=== PATIENT | female | born 1940 | race American Indian/Alaskan Native ===

== ENCOUNTER 2016-12-20 13:50 | Inpatient (IN) | payer MEDICARE, OTHER ==
--- NOTE | 2016-12-20 14:35 | Cat Scan Report ---
CT HEAD WITHOUT CONTRAST: HISTORY: Neurological deficit. Serial contiguous axial images were obtained through the cranium. Intravenous contrast material was not administered. The ventricles are normal in size and appearance. There is no mass effect or midline shift. No areas of abnormally increased or decreased attenuation are seen. No mass lesion is seen. The mastoid air cells and visualized portions of the sinuses are normal. IMPRESSION: Cranial CT scan within normal limits.
[2016-12-20 14:47] LABS: Basophils % (Auto) 0.9 % (0.0-1.8); Hematocrit 39.6 % (30.3-42.9); Hemoglobin 12.9 gm/dl (10.1-14.3); Mean Corpuscular HGB Conc 33 % (30-34); Mean Corpuscular Hemoglobin 28 pg (28-32); Mean Corpuscular Volume 88 fl (79-97); Platelet Count 207 K/mm3 (140-440); Red Blood Count 4.53 M/mm3 (3.65-5.03); Red Cell Distribution Width 14.9 % (13.2-15.2); White Blood Count 3.8 K/mm3 (4.5-11.0)
[2016-12-20 14:57] LABS: INR 0.96 (0.87-1.13); Partial Thromboplastin Time 30.4 Sec. (24.2-36.6)
[2016-12-20 15:09] LABS: Anion Gap 16 mmol/L; BUN/Creatinine Ratio 13.75; Blood Urea Nitrogen 11 mg/dL (7-17); Carbon Dioxide 27 mmol/L (22-30); Chloride 102.1 mmol/L (98-107); Glucose 82 mg/dL (65-100); Potassium 3.3 mmol/L (3.6-5.0); Sodium 142 mmol/L (137-145)
[2016-12-20] MEDS ORDERED: K-DUR PO ONE (15:25)
--- NOTE | 2016-12-20 15:46 | Emergency Department Report ---
ED Neuro Deficit HPI - General Chief Complaint: Neuro Symptoms/Deficit Stated Complaint: POSS STROKE Time Seen by Provider: 12/20/16 14:47 Source: patient Mode of arrival: Ambulatory Limitations: No Limitations - History of Present Illness Initial Comments: 76-year-old female with a past medical history diabetes, hypertension, GERD, and sickle cell trait presents to the hospital complains of dizziness and unsteady since yesterday. Patient initially presented to her anesthesiologist physician's office and was seen by Dr. Dr. Mann. During this visit patient is noted to have unsteady gait especially when trying to walk single fell 1 foot in front of the other. Patient was then sent to Dr. Sage neurologist office for further evaluation. Dr. Sage sent the patient to the ED to be worked up for stroke. I discussed case with Dr. Sage prior to patient's arrival to the ED. He requires admission and stroke evaluation. Patient denies any pain. She states that her dizziness feels more like an off-balance sensation and denies any spinning. Symptoms were worse yesterday and patient had to catch herself because she was falling to one side or the other when trying to ambulate. Now she is able to ambulate better but still has the off-balance feeling. She has difficulty when trying to walk 1 foot in front of the other as well. No reports of headache, nausea, vomiting, focal weakness or numbness. - Related Data Home Medications: Home Medications Medication Instructions Recorded Confirmed Last Taken Ca/D3/Mag#11/Zinc/Supervisor [place] 1 tab PO DAILY 08/23/13 08/23/13 08/22/13 [Caltrate 600+D Plus Tablet] 1 tab Calcium Carbonate/Vitamin D3 1 tab PO DAILY 08/23/13 08/23/13 08/22/13 08:00 [Centrum Pro Nutrients Tablet] 1 tablet Cyanocobalamin [Vitamin B-12] 1,000 mcg PO DAILY 08/23/13 08/23/13 08/22/13 08: 00 1000mcg Dexlansoprazole [Dexilant] 60 mg PO DAILY 08/23/13 08/23/13 08/22/13 08:00 Lactobacillus Acidophilus 1 each PO DAILY 08/23/13 08/23/13 08/22/13 [Probiotic] 1 cap [place]-3 Fatty Acids/Fish Oil [Fish 1 cap PO DAILY 08/23/13 08/23/13 08/22/13 08: 00 Oil] Quinapril/Hydrochlorothiazide 10 - 12.5 mg PO DAILY 08/23/13 08/23/13 08/23/13 [Quinapril-Hctz 10-12.5 mg Tab] 10-12.5mg Simvastatin [Zocor] 40 mg PO QHS 08/23/13 08/23/13 08/22/13 22:00 40mg glipiZIDE [glipiZIDE XL] 5 mg PO DAILY 08/23/13 08/23/13 08/22/13 07:30 5 mg Previous Rx's Medication Instructions Recorded Last Taken Type metFORMIN [Glucophage] 850 mg PO TID #30 08/23/13 08/22/13 07:30 Rx 850mg Allergies/Adverse Reactions: Allergies Allergy/AdvReac Type Severity Reaction Status Date / Time No Known Allergies Allergy Verified 08/23/13 07:05 ED Review of Systems ROS: Stated complaint: POSS STROKE Other details as noted in HPI Comment: All other systems reviewed and negative Other: Constitutional: No fevers chills Eyes: No eye pain visual changes ENT: No ear pain or throat pain Neck: Denies pain Respiratory: Denies cough wheezing shortness of breath Cardiovascular: Denies chest pain, palpitations, syncope GI: Denies abdominal pain, nausea, vomiting, diarrhea : Denies dysuria Musculoskeletal: Denies back pain Skin: Denies rash, lesions, erythema Neurologic: Denies headache, numbness, weakness Psychiatric: Denies suicidal ideation, hallucinations ED Past Medical Hx - Past Medical History Previous Medical History?: Yes Hx Hypertension: Yes Hx Diabetes: Yes Hx GERD: Yes Hx Sickle Cell Disease: Yes (sickle cell trait) Hx Arthritis: Yes - Surgical History Past Surgical History?: Yes Hx Cholecystectomy: Yes Hx Breast Surgery: Yes - Social History Smoking Status: Former Smoker Substance Use Type: Alcohol, Prescribed - Medications Home Medications: Home Medications Medication Instructions Recorded Confirmed Last Taken Type Ca/D3/Mag#11/Zinc/Supervisor [place] 1 tab PO DAILY 08/23/13 08/23/13 08/22/13 History [Caltrate 600+D Plus Tablet] 1 tab Calcium Carbonate/Vitamin D3 1 tab PO DAILY 08/23/13 08/23/13 08/22/13 08:00 History [Centrum Pro Nutrients Tablet] 1 tablet Cyanocobalamin [Vitamin B-12] 1,000 mcg PO DAILY 08/23/13 08/23/13 08/22/13 08: 00 History 1000mcg Dexlansoprazole [Dexilant] 60 mg PO DAILY 08/23/13 08/23/13 08/22/13 08:00 History Lactobacillus Acidophilus 1 each PO DAILY 08/23/13 08/23/13 08/22/13 History [Probiotic] 1 cap [place]-3 Fatty Acids/Fish Oil [Fish 1 cap PO DAILY 08/23/13 08/23/13 08/22/13 08: 00 History Oil] Quinapril/Hydrochlorothiazide 10 - 12.5 mg PO DAILY 08/23/13 08/23/13 08/23/13 History [Quinapril-Hctz 10-12.5 mg Tab] 10-12.5mg Simvastatin [Zocor] 40 mg PO QHS 08/23/13 08/23/13 08/22/13 22:00 History 40mg glipiZIDE [glipiZIDE XL] 5 mg PO DAILY 08/23/13 08/23/13 08/22/13 07:30 History 5 mg metFORMIN [Glucophage] 850 mg PO TID #30 08/23/13 08/23/13 08/22/13 07:30 Rx 850mg ED Neuro Physical Exam - General Limitations: No Limitations Suspected Stroke: Yes - NIHSS Assessment Interval: Baseline 1a. Level of Consciousness: alert 1b. LOC Questions: answers correctly 1c. LOC Commands: performs tasks correctly 2. Best Gaze: normal 3. Visual: no visual loss 4. Facial Palsy: normal symmetrical movement 5b. Motor Arm Right: no drift 5a. Motor Arm Left: no drift 6a. Motor Leg Left: no drift 6b. Motor Leg Right: no drift 7. Limb Ataxia: absent 8. Sensory: normal 9. Best Language: no aphasia 10. Dysarthria: normal 11. Extinction/Inattention: no abnormality Total Score: 0 Stroke Severity: No Stroke Symptoms - Other Other exam information: General: No limitations, patient is alert in no acute distress Head exam: Atraumatic, normocephalic Eyes exam: Normal appearance, pupils equal reactive to light, extraocular movements intact ENT: Moist mucous membrane, normal oropharynx Neck exam: Normal inspection, full range of motion, no meningismus nontender Respiratory exam: Clear to auscultation bilateral, no wheezes, rales, crackles Cardiovascular: Normal rate and rhythm, normal heart sounds Abdomen: Soft, nondistended, and nontender, with normal bowel sounds, no rebound, or guarding Extremity: Full range of motion normal inspection no deformity Back: Normal Inspection, full range of motion, no tenderness Neurologic: Alert, oriented x3, cranial nerves intact, no motor or sensory deficit Psychiatric: normal affect, normal mood Skin: Warm, dry, intact ED Course Vital Signs 12/20/16 13:58 Temperature 98.6 F Pulse Rate 62 Respiratory 18 Rate Blood Pressure 154/100 O2 Sat by Pulse 100 Oximetry - Reevaluation(s) Reevaluation #1: 12/20/16 15:47 Potassium orally in the ED for hypokalemia - Lab Data Result diagrams: 12/20/16 14:32 12/20/16 14:32 Lab Results 12/20/16 12/20/16 12/20/16 Range/Units 14:32 14:32 14:32 WBC 3.8 L (4.5-11.0) K/mm3 RBC 4.53 (3.65-5.03) M/mm3 Hgb 12.9 (10.1-14.3) gm/dl Hct 39.6 (30.3-42.9) % MCV 88 (79-97) fl MCH 28 (28-32) pg MCHC 33 (30-34) % RDW 14.9 (13.2-15.2) % Plt Count 207 (140-440) K/mm3 Lymph % (Auto) 41.6 H (13.4-35.0) % [place] % (Auto) 6.8 (0.0-7.3) % Eos % (Auto) 3.0 (0.0-4.3) % Baso % (Auto) 0.9 (0.0-1.8) % Lymph # 1.6 (1.2-5.4) K/mm3 [place] # 0.3 (0.0-0.8) K/mm3 Eos # 0.1 (0.0-0.4) K/mm3 Baso # 0.0 (0.0-0.1) K/mm3 Seg Neutrophils % 47.7 (40.0-70.0) % Seg Neutrophils # 1.8 (1.8-7.7) K/mm3 PT 12.7 (12.2-14.9) Sec. INR 0.96 (0.87-1.13) APTT 30.4 (24.2-36.6) Sec. Thrombin Time (15.1-19.6) Sec. Sodium 142 (137-145) mmol/L Potassium 3.3 L (3.6-5.0) mmol/L Chloride 102.1 (98-107) mmol/L Carbon Dioxide 27 (22-30) mmol/L Anion Gap 16 mmol/L BUN 11 (7-17) mg/dL Creatinine 0.8 (0.7-1.2) mg/dL Estimated GFR > 60 ml/min BUN/Creatinine Ratio 13.75 % Glucose 82 (65-100) mg/dL Calcium 10.0 (8.4-10.2) mg/dL Troponin T < 0.010 (0.00-0.029) ng/mL 12/20/16 Range/Units 14:32 WBC (4.5-11.0) K/mm3 RBC (3.65-5.03) M/mm3 Hgb (10.1-14.3) gm/dl Hct (30.3-42.9) % MCV (79-97) fl MCH (28-32) pg MCHC (30-34) % RDW (13.2-15.2) % Plt Count (140-440) K/mm3 Lymph % (Auto) (13.4-35.0) % [place] % (Auto) (0.0-7.3) % Eos % (Auto) (0.0-4.3) % Baso % (Auto) (0.0-1.8) % Lymph # (1.2-5.4) K/mm3 [place] # (0.0-0.8) K/mm3 Eos # (0.0-0.4) K/mm3 Baso # (0.0-0.1) K/mm3 Seg Neutrophils % (40.0-70.0) % Seg Neutrophils # (1.8-7.7) K/mm3 PT (12.2-14.9) Sec. INR (0.87-1.13) APTT (24.2-36.6) Sec. Thrombin Time 17.6 (15.1-19.6) Sec. Sodium (137-145) mmol/L Potassium (3.6-5.0) mmol/L Chloride (98-107) mmol/L Carbon Dioxide (22-30) mmol/L Anion Gap mmol/L BUN (7-17) mg/dL Creatinine (0.7-1.2) mg/dL Estimated GFR ml/min BUN/Creatinine Ratio % Glucose (65-100) mg/dL Calcium (8.4-10.2) mg/dL Troponin T (0.00-0.029) ng/mL - EKG Data -: EKG Interpreted by Me (sinus bradycardia rate [address] elevation or T-wave inversion) When compared to previous EKG there are: no significant change - Radiology Data Radiology results: report reviewed (CT head: No acute findings) - Medical Decision Making Plan admit patient to hospital for further workup and evaluation of unsteady gait and dizziness. Neurologist suspicious for posterior circulation stroke. Initial CT head unremarkable. - Differential Diagnosis vertigo, CVA, Critical Care Time: No Critical care attestation.: If time is entered above; I have spent that time in minutes in the direct care of this critically ill patient, excluding procedure time. ED Disposition Clinical Impression: Dizziness, Unsteady gait, HTN (hypertension), Diabetes Disposition: OP ADMITTED IP TO THIS HOSP Is pt being admited?: Yes Condition: Stable Instructions: Hypertension (ED), Diabetes Mellitus Type 2 in Adults (ED) Time of Disposition: 15:49 (Dr. Moreno/hosp)
--- NOTE | 2016-12-20 16:17 | History and Physical Report ---
History of Present Illness Chief complaint: Weakness, cant walk right History of present illness: 76 YO Female with DM, OA, HTN, GERD, Metabolic Syndrome, SC Trait presents to ED for Evalaution. Pt states that she has been experiencing dizziness, and inability to walk straight for the past 24 hours. Pt states that symptoms began yesterday and have improved only slightly, but have not worsened. Patient initially evaluated in her cardiology physician's office and was noted to have abnormal gait, and weakness. Pt states that she has a ringing in her ear and that sometimes she feeling like the room is spinning. Patient was then sent to neurologist office for further evaluation who recommended that patient present to ED for evaluation. Pt denies fever, chills, CP, Palpitations, NVD, difficulty breathing, Syncope, seizure, headache, nausea, vomiting, or recent ill contacts, prolonged travel/immobility, individual/family history of DVT/PE. Past History Past Medical History: arthritis, diabetes, GERD, hypertension Past Surgical History: cholecystectomy, Other (breast surgery) Social history: , lives with family. denies: smoking, alcohol abuse, prescription drug abuse Family history: diabetes, hypertension Medications and Allergies Allergies Allergy/AdvReac Type Severity Reaction Status Date / Time No Known Allergies Allergy Verified 08/23/13 07:05 Home Medications Medication Instructions Recorded Confirmed Last Taken Type Cyanocobalamin (Vitamin B-12) 1,000 mcg PO DAILY 12/20/16 12/20/16 12/19/16 History [B-12] Dexlansoprazole [Dexilant] 60 mg PO QDAY 12/20/16 12/20/16 12/19/16 History Multivit-Min/FA/Lycopen/Lutein 1 each PO BID 12/20/16 12/20/16 12/19/16 History [Centrum Silver Tablet] Multivits Min/Iron/FA/Herb#186 1 each PO BID 12/20/16 12/20/16 12/19/16 History [Hair, Skin and Nails Caplet] Simvastatin [Zocor TAB] 40 mg PO QHS 12/20/16 12/20/16 12/19/16 History Valsartan/Hydrochlorothiazide 1 each PO DAILY 12/20/16 12/20/16 12/19/16 History [Valsartan-Hctz 160-12.5 mg Tab] glipiZIDE XL [Glucotrol Xl] 10 mg PO BID 12/20/16 12/20/16 12/19/16 History Review of Systems All systems: negative Neurological: weakness, balance difficulties Exam - Constitutional Vitals: Temp Pulse Resp BP Pulse Ox 98.6 F 63 18 150/76 99 12/20/16 13:58 12/20/16 16:02 12/20/16 16:02 12/20/16 16:02 12/20/16 16:02 General appearance: Present: obese - EENT Eyes: Present: PERRL ENT: hearing intact, clear oral mucosa - Neck Neck: Present: supple, normal ROM - Respiratory Respiratory effort: normal Respiratory: bilateral: CTA - Cardiovascular Heart Sounds: Present: S1 & S2. Absent: rub, click - Extremities Extremities: pulses symmetrical, No edema Peripheral Pulses: within normal limits - Abdominal General gastrointestinal: Present: soft, non-tender, non-distended, normal bowel sounds Female genitourinary: Present: normal - Integumentary Integumentary: Present: clear, warm, dry - Musculoskeletal Musculoskeletal: gait normal, strength equal bilaterally - Psychiatric Psychiatric: appropriate mood/affect, intact judgment & insight - Neurologic Neurologic: CNII-XII intact, moves all extremities Results - Labs CBC & Chem 7: 12/20/16 14:32 12/20/16 14:32 Labs: Abnormal lab results 12/20/16 12/20/16 Range/Units 14:32 14:32 WBC 3.8 L (4.5-11.0) K/mm3 Lymph % (Auto) 41.6 H (13.4-35.0) % Potassium 3.3 L (3.6-5.0) mmol/L Assessment and Plan - Patient Problems (1) CVA (cerebral vascular accident) Current Visit: Yes Status: Suspected Qualifiers: CVA mechanism: C Precerebral and cerebral artery: P Laterality of affected vessel: L Plan to address problem: Stroke protocol: MRI, MRA, Carotid doppler, Echo, supportive care, lipid panel, antiplatelet therapy (2) Accelerated hypertension Current Visit: Yes Status: Acute Plan to address problem: Monitor BP q shift, resume home medication. Telemetry monitoring, (3) Encephalopathy acute Current Visit: Yes Status: Acute Plan to address problem: Monitor bp q shift, continue current care, fall precautions (4) Diabetes Current Visit: Yes Status: Acute Qualifiers: Diabetes mellitus type: D Diabetes mellitus complication status: D Diabetes mellitus complication detail: D Diabetic retinopathy severity: D Proliferative retinopathy type: P Diabetes mellitus macular edema: D Diabetes mellitus rodent exterminator insulin use: D Laterality: L Chronic kidney disease stage: C Plan to address problem: ADA diet, insulin, accu check (5) Vertigo Current Visit: Yes Status: Suspected Plan to address problem: Suspected vertigo, will rull out acute CVA/TIA, supportive care, will start meclizine/vestibular rehab bending results of stroke workup. (6) DVT prophylaxis Current Visit: Yes Status: Acute
[2016-12-20] MEDS ORDERED: MILK OF MAGNESIA PO PRN ×2 (16:18→16:20)
[2016-12-20] MEDS ORDERED: DULCOLAX PR PRN ×2 (16:18→16:20)
[2016-12-20] MEDS ORDERED: ZOFRAN IV PRN ×2 (16:18→16:20)
[2016-12-20] MEDS ORDERED: TYLENOL PO PRN ×2 (16:18→16:20)
[2016-12-20] MEDS ORDERED: REGLAN PO PRN (16:20)
[2016-12-20] MEDS ORDERED: PHENERGAN PR PRN (16:20)
[2016-12-20] MEDS ORDERED: SODIUM CHLORIDE FLUSH SYRINGE 10 ML IV PRN (16:20)
--- NOTE | 2016-12-20 16:37 | Admit Criteria Form ---
Admission Criteria Documentation: NEUROLOGY GRG Clinical Indications for Admission to Inpatient Care (Place ' X' for any and all applicable criteria): Hospital admission is needed for appropriate care of the patient because of 1 or more of the following: [ ]I. Encephalitis [ ]II. Severe COMPUTER AIDED DESIGN TECHNICIAN infections indicated by 1 or more of the following(1)(2)(3) : [ ]a) Intracranial abscess [ ]b) Spinal abscess or myelitis [ ]c) Tuberculous or other nonbacterial, nonviral COMPUTER AIDED DESIGN TECHNICIAN infection(8) [ ]III. Vasculitis and 1 or more of the following(14)(15): []a) Altered mental status that is severe or persistent or other acute neurologic change []b) Psychosis []c) Seizure [ ]IV. Status epilepticus or repetitive seizures not controlled with emergent treatment [A] (7)(8) [ ]V. Altered mental status that is severe or persistent [ ]. Transient alteration in consciousness with high-risk etiology; examples include (12)(13): [ ]a) Cardiovascular source [ ]b) Cataplexy [ ]VII. Cerebral aneurysm requiring ANY ONE of the following(14): [ ]a) IV antihypertensives or vasoactive agents [ ]b) Sedation and analgesia for suspected leak [ ]c) Need for external ventricular drainage and cerebral perfusion pressure monitoring [ ]d) Emergent evaluation to determine need for surgical clipping or endovascular coiling by interventional radiology. If surgery is required ( Also use Craniotomy, Supratentorial, for Surgery of Bleeding Intracranial Aneurysm (for bleeding aneurysm) or Craniotomy, Supratentorial (for nonbleeding aneurysm) as appropriate. [ ]VIII. New-onset severe neurologic symptom requiring inpatient care indicated by ANY ONE of the following: [ ]a) Aphasia(15) [ ]b) Weakness (grade 3 or less) [ ]c) Paralysis (eg, hemiplegia) [ ]d) Spasticity(16) [ ]e) Dystonia [ ]e) Ataxia(17) [ ]f) Amnesia(18) [ ]g) Involuntary movements(19) [ ]h) Vertigo [ ] Visual loss [ ]i) Other severe neurologic finding (eg, papilledema, mass effect on imaging, myoclonus not treatable at alternative level of care (eg, observation care) [ ]IX. Guillain-Greenwood syndrome(20) [ ]X. Myasthenia gravis crisis or inpatient monitoring need as indicated by 1 or more of the following(21): [ ]a) Intensive treatment (eg, course of plasmapheresis) with inadequate outpatient situation to monitor patients status [ ]b) Inadequate airway protection [ ]c) Respiratory insufficiency requiring intubation or inpatient. monitoring [ ]d) Progressive dysphagia with failure to thrive [ ]XI. Multiple sclerosis or other acute demyelinating disease requiring inpatient care as indicated by 1 or more of the following (22)(23): [ ]a) Acute severe deterioration requiring inpatient treatment (eg, IV steroids, plasmapheresis, close observation) [ ]b) Acute complication requiring inpatient care (eg, sepsis, severe decubitus, aspiration) [ ]XII.Parkinson disease requiring inpatient care (Also use Optimal Recovery Care Criteria or General Recovery Criteria as appropriate) indicated by 1 or more of the following(25): [ ]a) Infection (eg, aspiration pneumonia) not treatable at alternative level of care [ ]b Dehydration that is severe or persistent [ ]c) Life-threatening agitation or psychotic behavior not treatable on emergency, observation care, or alternative level (eg, residential) basis [ ]d) Severe medication withdrawal effects (eg, freezing, neuroleptic malignant syndrome) not responsive to emergency and observation care treatment ( as appropriate) [ ]e) Other severe manifestation not treatable at alternative level of care [ ]XII. Amyotrophic lateral sclerosis with inpatient care needs as indicated by ANY ONE of the following(26): [ ]a) Acute complications (eg, aspiration pneumonia, sepsis ) requiring inpatient care ( see other optimal Recovery Guideline as appropriate) [ ]b) Dehydration that is severe persistent AND artificial support desired [ ]c) Inadequate airway protection AND artificial support desired [ ]d) Severe ventilatory insufficiency AND artificial support desired [ ]XIII. Myasthenia gravis crisis or inpatient monitoring need as indicated by 1 or more of the following(21): [] a) Inadequate airway protection []b) Respiratory insufficiency requiring intubation or inpatient monitoring []c) Progressive dysphagia with failure to thrive []d) Intensive treatment (e.g., course of plasmapheresis) with inadequate outpatient situation to monitor patients status [ ]XIV. Multiple sclerosis or other acute demyelinating disease requiring inpatient care indicated by 1 or more of the following[C](36)(43)(44)(45)(46): []a) Acute severe deterioration requiring inpatient treatment (eg, IV steroids, plasmapheresis, close observation) []b) Acute complication requiring inpatient care (eg, sepsis, severe decubitus, aspiration) [ ]XV. Intracranial hypertension (e.g., pseudotumor cerebri) requiring inpatient care (e.g., acute visual loss, inadequate oral intake) (47)(48)(49) [ ]XVI. Parkinson disease requiring inpatient care (Also use Optimal Recovery Care Criteria or General Recovery Criteria as appropriate) indicated by 1 or more of the following(25): [] a) Infection (e.g., aspiration pneumonia) not treatable at alternative level of care []b) Volume depletion not responsive to emergency and observation care treatment (as appropriate) []c) Life-threatening agitation or psychotic behavior not treatable on emergency, observation care, or alternative level (e.g., residential) basis []d) Severe medication withdrawal effects (e.g., freezing, neuroleptic malignant syndrome) not responsive to emergency and observation care treatment (as appropriate) []e) Other severe manifestation not treatable at alternative level of care [ ]XVII. Amyotrophic lateral sclerosis with inpatient care needs as indicated by1 or more of the following(42): []a) Acute complications (eg, aspiration pneumonia, sepsis) requiring inpatient care (see other Optimal Recovery Guideline or General Recovery Guideline as appropriate) []b) Dehydration that is severe or persistent AND artificial support desired []c) Inadequate airway protection AND artificial support desired []d) Severe ventilatory insufficiency AND artificial support desired [ ]XVIII. Severe myopathy, neuropathy, or other neuromuscular disease indicated by 1 or more of the following(42)(52)(53)(54): []a ) New-onset severe diffuse weakness (eg, strength 3/5 or less) []b) Severe dysphagia []c) Dyspnea at rest or with minimal exertion (new) []d) Inadequate airway protection []e) Inadequate ventilation indicated by 1 or more of the following : i) Partial pressure of carbon dioxide greater than 44 mm Hg ( 5.9 kPa) (new) ii) Reduced peak expiratory flow rate (new) iii) Vital capacity less than 50% of predicted (less than 15 mL/kg) iv) Peak inspiratory force less negative than -30 cm H2O (- 2942 Pa) [ ]XVII.Complications of congenital or degenerative disease (eg, infection, seizures, dehydration, injury) not responsive to emergency and observation care treatment (as appropriate ) [C](16)(29)(30) [ ]XVIII.Suspected or confirmed nerve or muscle toxic injury, including ANY ONE of the following: [ ]a) Rhabdomyolysis(31) i) Acute renal failure ii) Dehydration that is severe or persistent iii) Altered mental status that is severe or persistent iv) Electrolyte abnormality that remains after emergency or observation level care ( as appropriate) [ ]b) Botulism(32) [ ]c) Other severe toxin-induced sign or symptom [ ]XIX. Neurologic trauma requiring inpatient treatment (medical) indicated by ANY ONE of the following(33)(34): [ ]a) Vital signs or neurologic signs more frequently than every 4 hours [ ]b) Hyperosmolar therapy [ ]c) Respiratory monitoring [ ]d) Intracranial pressure monitoring and treatment [ ]e) Stabilization and immobilization device placement (eg, braces, body jacket) [ ]f) Intubation & mechanical ventilation for airway protection or therapeutic hyperventilation [ ]g) Other treatment or monitoring needed that requires inpatient level of care [ ]XX.Complications of neurologic devices (eg, ventricular shunt, neurostimulator) requiring 1 or more of the following(35)(36): [ ]a) IV antibiotics with monitoring while awaiting culture results [ ]b) Monitoring for hydrocephalus [X ]XXI. Neurology condition symptom, or finding for which emergency and observation care have failed or are not considered appropriate. See General Criteria: Observation Care ISC, General Admission Criteria GRG, or Pediatric General Admission Criteria GRG guideline as appropriate. The original [facility] content created by [facility] has been revised. The portions of the content which have been revised are identified through the use of italic text or in bold, and [facility] has neither reviewed nor approved the modified material. All other unmodified content is copyright [facility] Please see references footnoted in the original [facility] edition 2016 Admission Criteria Met: Yes
[2016-12-20] MEDS ORDERED: D50W (25GM) IV PRN (17:03)
[2016-12-20] MEDS: NOVOLOG SUB-Q SCH ×2 (18:13→21:46)
[2016-12-20] MEDS ORDERED: ZOCOR PO SCH ×2 (22:00)
[2016-12-20] MEDS ORDERED: [UNRECOGNIZED DRUG - OTHER] PO SCH (22:00)
[2016-12-20] MEDS ORDERED: HERB PO SCH (22:00)
[2016-12-20] MEDS ORDERED: IRON PO SCH (22:00)
[2016-12-20] MEDS ORDERED: MULTIVITS MIN PO SCH (22:00)
[2016-12-20] MEDS ORDERED: NON-FORMULARY (Multivit-Min/Fa/Lycopen/Lutein [Centrum Silver Tablet] 1 EACH) PO SCH (22:00)
[2016-12-21] MEDS: NOVOLOG SUB-Q SCH (08:28)
[2016-12-21] MEDS ORDERED: NON-FORMULARY (Valsartan/Hydrochlorothiazide [Valsartan-Hctz 160-12.5 Mg Tab] 1 EACH) PO SCH (10:00)
[2016-12-21] MEDS ORDERED: VITAMIN B-12 PO SCH (10:00)
[2016-12-21] MEDS ORDERED: THERAGRAN Tab PO SCH (10:00)
[2016-12-21] MEDS ORDERED: HCTZ PO SCH (10:00)
[2016-12-21] MEDS ORDERED: NON-FORMULARY (Dexlansoprazole [Dexilant] 60 MG) PO SCH (10:00)
[2016-12-21] MEDS ORDERED: ECOTRIN PO SCH (10:00)
[2016-12-21] MEDS ORDERED: PROTONIX PO SCH (10:00)
[2016-12-21] MEDS ORDERED: DIOVAN PO SCH (10:00)
--- NOTE | 2016-12-21 12:09 | Progress Note ---
Assessment and Plan Assessment and plan: Patient 76-year-old woman with a history of hypertension, Diabetes mellitus type 2, GERD who presents with dizziness and unsteady gait since yesterday. Patient had ringing in her ear and allergies sinus drainage, vertigo 1 week. She went to see her practice management consultant Dr. Jillian Burns referred her to the neurologist Dr. Sage. Dr. Zheng sent to the ED to be worked up for stroke. -Ataxia with without cerebellar dysmetria or nystagmus, most likely related to inner Ear dysfunction/peripheral Vertigo if MRI is negative, carotid Dopplers negative -Hypokalemia: Replace -Accelerated hypertension History Interval history: Patient seen and examined. Follow up on vertigo symptoms including dizziness. She does have ringing in her right ear. She does have abnormal balance. Overnight uneventful. No cp, sob, n/v or severe headaches. Imaging, old records , testing, labs, nursing notes reviewed. Plan discussed with patient. Hospitalist Physical - Physical exam Narrative exam: GEN: WDWN, NAD, AWAKE, ALERT, ORIENTATED 3 HEENT: NCAT, PERRL, EOMI, OP CLEAR NECK: SUPPLE, NO THYROMEGALY, NO JVD, NO LAD CVS: RRR, NORMAL S1S2 LUNGS/CHEST: CTA B, NORMAL CHEST EXPANSION B, GOOD AIR ENTRY B ABD: SOFT NTND, GBS, NO REBOUND OR GUARDING EXT/SKIN: NO SIGNIFICANT EDEMA OR RASH MSK: FROM X 4 EXTREMITIES NEURO: CN 2-12 GROSSLY INTACT, NO new FOCAL DEFICITS PSY: CALM - Constitutional Vitals: Temp Pulse Resp BP Pulse Ox 97.9 F 53 L 20 141/61 97 12/21/16 04:45 12/21/16 10:28 12/21/16 04:45 12/21/16 04:45 12/21/16 09:07 General appearance: Present: obese Results - Labs CBC & Chem 7: 12/20/16 14:32 12/20/16 14:32 Labs: Laboratory Last Values WBC 3.8 K/mm3 (4.5-11.0) L 12/20/16 14:32 RBC 4.53 M/mm3 (3.65-5.03) 12/20/16 14:32 Hgb 12.9 gm/dl (10.1-14.3) 12/20/16 14:32 Hct 39.6 % (30.3-42.9) 12/20/16 14:32 MCV 88 fl (79-97) 12/20/16 14:32 MCH 28 pg (28-32) 12/20/16 14:32 MCHC 33 % (30-34) 12/20/16 14:32 RDW 14.9 % (13.2-15.2) 12/20/16 14:32 Plt Count 207 K/mm3 (140-440) 12/20/16 14:32 Lymph % (Auto) 41.6 % (13.4-35.0) H 12/20/16 14:32 Ritchie % (Auto) 6.8 % (0.0-7.3) 12/20/16 14:32 Eos % (Auto) 3.0 % (0.0-4.3) 12/20/16 14:32 Baso % (Auto) 0.9 % (0.0-1.8) 12/20/16 14:32 Lymph # 1.6 K/mm3 (1.2-5.4) 12/20/16 14:32 Ritchie # 0.3 K/mm3 (0.0-0.8) 12/20/16 14:32 Eos # 0.1 K/mm3 (0.0-0.4) 12/20/16 14:32 Baso # 0.0 K/mm3 (0.0-0.1) 12/20/16 14:32 Seg Neutrophils % 47.7 % (40.0-70.0) 12/20/16 14:32 Seg Neutrophils # 1.8 K/mm3 (1.8-7.7) 12/20/16 14:32 PT 12.7 Sec. (12.2-14.9) 12/20/16 14:32 INR 0.96 (0.87-1.13) 12/20/16 14:32 APTT 30.4 Sec. (24.2-36.6) 12/20/16 14:32 Thrombin Time 17.6 Sec. (15.1-19.6) 12/20/16 14:32 Sodium 142 mmol/L (137-145) 12/20/16 14:32 Potassium 3.3 mmol/L (3.6-5.0) L 12/20/16 14:32 Chloride 102.1 mmol/L (98-107) 12/20/16 14:32 Carbon Dioxide 27 mmol/L (22-30) 12/20/16 14:32 Anion Gap 16 mmol/L 12/20/16 14:32 BUN 11 mg/dL (7-17) 12/20/16 14:32 Creatinine 0.8 mg/dL (0.7-1.2) 12/20/16 14:32 Estimated GFR > 60 ml/min 12/20/16 14:32 BUN/Creatinine Ratio 13.75 % 12/20/16 14:32 Glucose 82 mg/dL (65-100) 12/20/16 14:32 POC Glucose 101 (70-105) 12/20/16 21:34 Hemoglobin A1c 6.3 % (4-6) H 12/21/16 05:17 Calcium 10.0 mg/dL (8.4-10.2) 12/20/16 14:32 Troponin T < 0.010 ng/mL (0.00-0.029) 12/20/16 14:32
--- NOTE | 2016-12-21 12:17 | Discharge Summary ---
Providers - Providers Date of Admission: 12/20/16 16:18 Date of discharge: 12/21/16 Attending physician: HARLEY NEWELL 12/20/16 16:20 Occupational Therapy Evaluate and Treat [CONS] Routine Comment: Reason For Exam: Neuro deficits Physical Therapy Evaluation and Treat [CONS] Routine Comment: Reason For Exam: Neuro deficits 12/21/16 10:56 Consult to Physician [CONS] Routine Consulting Provider: HARJINDER SIMMS Reason For Exam: stroke Place consult to:: Marianne Notified:: yes Was contact made?: Yes Primary care physician: WEATHER REPORTER Hospitalization Condition: Stable Hospital course: Patient 76-year-old woman with a history of hypertension, Diabetes mellitus type 2, GERD who presents with dizziness and unsteady gait since yesterday. Patient had ringing in her ear and allergies sinus drainage, vertigo 1 week. She went to see her it risk analyst Dr. Jillian Burns referred her to the neurologist Dr. Sage. Dr. Zheng sent to the ED to be worked up for stroke. -Ataxia with without cerebellar dysmetria or nystagmus, most likely related to inner Ear dysfunction/peripheral Vertigo vs other -Hypokalemia: Replace -Accelerated hypertension Disposition: DISCHARGED TO HOME OR SELFCARE Core Measure Documentation - Palliative Care Palliative Care/ Comfort Measures: Not Applicable - Core Measures Any of the following diagnoses?: none - VTE Discharge Requirements Deep Vein Thrombosis/Pulmonary Embolism Present on Admission: No Has pt received <5 days of overlap therapy or INR<2.0: No Anticoagulant overlap therapy prescribed at discharge: No Contraindication No Overlap Therapy order at DC: Not Indicated Exam - Physical Exam Narrative exam: GEN: WDWN, NAD, AWAKE, ALERT, ORIENTATED 3 HEENT: NCAT, PERRL, EOMI, OP CLEAR NECK: SUPPLE, NO THYROMEGALY, NO JVD, NO LAD CVS: RRR, NORMAL S1S2 LUNGS/CHEST: CTA B, NORMAL CHEST EXPANSION B, GOOD AIR ENTRY B ABD: SOFT NTND, GBS, NO REBOUND OR GUARDING EXT/SKIN: NO SIGNIFICANT EDEMA OR RASH MSK: FROM X 4 EXTREMITIES NEURO: CN 2-12 GROSSLY INTACT, NO new FOCAL DEFICITS PSY: CALM - Constitutional Vitals: Temp Pulse Resp BP Pulse Ox 97.9 F 53 L 20 141/61 97 12/21/16 04:45 12/21/16 10:28 12/21/16 04:45 12/21/16 04:45 12/21/16 09:07 Plan Activity: no driving until cleared by PCP, fall precautions, other (no strenous activites until cleared by PCP.) Diet: low salt, diabetic Follow up with: PRIMARY CAREMD [Primary Care Provider] - 7 Days GRUPO SAGE MD [Staff Physician] - 7 Days
--- NOTE | 2016-12-21 13:29 | Consultation ---
History of Present Illness Consult date: 12/21/16 Requesting physician: GRUPO AGUIRRE Consult reason: known to you, other (stroke) History of present illness: The patient is a 76-year-old female with a past medical history significant for hypertension, diabetes, hyperlipidemia and normal coronary arteries in August 2013. She presented to our office to Dr. Mann yesterday with c/o unsteady gait due to balance disturbances since Monday and a brief episode of vertigo and light-headedness which occurred on Monday morning around 5:30AM. In our office, her 12-lead EKG revealed sinus bradycardia, HR 49, nonspecific T-wave abnormality. She was then referred to Dr. Zheng for further evaluation and was subsequently admitted to be worked up for CVA. She denies any precipitating , aggravating, or alleviating factors. She denies any chest pain, shortness of breath, palpitations, nausea, vomiting, diaphoresis, or syncope. On evaluation she reports that her balance difficulties have resolved and her gait is now steady but she still complains of intermittent vertigo. Past History Past Medical History: arthritis, diabetes, GERD, hypertension Past Surgical History: cholecystectomy, Other (breast surgery) Social history: , lives with family. denies: smoking, alcohol abuse, prescription drug abuse Family history: diabetes, hypertension Medications and Allergies Allergies Allergy/AdvReac Type Severity Reaction Status Date / Time No Known Allergies Allergy Verified 08/23/13 07:05 Home Medications Medication Instructions Recorded Confirmed Last Taken Type Cyanocobalamin (Vitamin B-12) 1,000 mcg PO DAILY 12/20/16 12/20/16 12/19/16 History [B-12] Dexlansoprazole [Dexilant] 60 mg PO QDAY 12/20/16 12/20/16 12/19/16 History Multivit-Min/FA/Lycopen/Lutein 1 each PO BID 12/20/16 12/20/16 12/19/16 History [Centrum Silver Tablet] Multivits Min/Iron/FA/Herb#186 1 each PO BID 12/20/16 12/20/16 12/19/16 History [Hair, Skin and Nails Caplet] Simvastatin [Zocor TAB] 40 mg PO QHS 12/20/16 12/20/16 12/19/16 History Valsartan/Hydrochlorothiazide 1 each PO DAILY 12/20/16 12/20/16 12/19/16 History [Valsartan-Hctz 160-12.5 mg Tab] glipiZIDE XL [Glucotrol Xl] 10 mg PO BID 12/20/16 12/20/16 12/19/16 History Active Meds: Active Medications Acetaminophen (Tylenol) 650 mg PO Q4H PRN PRN Reason: Pain, Mild (1-3) Aspirin (Ecotrin) 325 mg PO QDAY [facility] Last Admin: 12/21/16 11:22 Dose: 325 mg Bisacodyl (Dulcolax) 10 mg NC QDAY PRN PRN Reason: Constipation unrelieved by MOM Cyanocobalamin (Vitamin B-12) 1,000 mcg PO DAILY [facility] Last Admin: 12/21/16 11:22 Dose: 1,000 mcg Dextrose (D50w (25gm)) 50 ml IV PRN PRN PRN Reason: Hypoglycemia Hydrochlorothiazide (Hctz) 12.5 mg PO QDAY [facility] Last Admin: 12/21/16 11:21 Dose: 12.5 mg Insulin Aspart (Novolog) 0 units SUB-Q ACHS [facility] PRN Reason: Protocol Last Admin: 12/21/16 08:28 Dose: Not Given Magnesium Hydroxide (Milk Of Magnesia) 30 ml PO Q4H PRN PRN Reason: Constipation Metoclopramide HCl (Reglan) 10 mg PO Q6H PRN PRN Reason: Nausea And Vomiting Multivitamins (Theragran Tab) 1 each PO DAILY [facility] Last Admin: 12/21/16 11:22 Dose: 1 each Ondansetron HCl (Zofran) 4 mg IV Q8H PRN PRN Reason: N/V unrelieved by Reglan Pantoprazole Sodium (Protonix) 40 mg PO DAILY [facility] Last Admin: 12/21/16 11:22 Dose: Not Given Promethazine HCl (Phenergan) 25 mg NC Q6H PRN PRN Reason: Nausea And Vomiting Simvastatin (Zocor) 40 mg PO QHS [facility] Last Admin: 12/20/16 21:41 Dose: 40 mg Sodium Chloride (Sodium Chloride Flush Syringe 10 Ml) 10 ml IV PRN PRN PRN Reason: LINE FLUSH Valsartan (Diovan) 160 mg PO QDAY [facility] Last Admin: 12/21/16 11:22 Dose: 160 mg Review of Systems Constitutional: no weight loss, no weight gain, no fever, no chills, no sweats Ears, nose, mouth and throat: tinnitis (1 week ago ), no ear pain, no decreased hearing, no nose pain, no nasal congestion, no nasal discharge, no sinus pressure, no sinus pain, no epistaxis, no bleeding gums, no dental pain, no mouth pain, no dysphagia, no hoarseness, no sore throat Cardiovascular: lightheadedness, no chest pain, no orthopnea, no palpitations, no rapid/irregular heart beat, no edema, no syncope, no shortness of breath, no dyspnea on exertion, no leg edema, no decreased exercise tolerance Respiratory: no cough, no shortness of breath, no dyspnea on exertion, no congestion, no wheezing, no pain Gastrointestinal: no abdominal pain, no nausea, no vomiting, no diarrhea, no constipation, no change in bowel habits Genitourinary Female: no dysuria, no urinary frequency, no urgency Musculoskeletal: no neck stiffness, no neck pain, no shooting arm pain, no arm numbness/tingling, no low back pain, no shooting leg pain, no leg numbness/ tingling, no redness of joints Integumentary: no rash, no pruritis, no redness, no sores, no wounds Neurological: lack of coordination, vertigo, balance difficulties, no head injury, no transient paralysis, no paralysis, no weakness, no parathesias, no numbness, no tingling, no seizures, no syncope, no headaches, no convulsions, no aphasia, no change in speech, no change in mentation, no confusion Psychiatric: no anxiety Endocrine: no cold intolerance, no heat intolerance Hematologic/Lymphatic: no easy bruising, no easy bleeding, no lymphadenopathy Allergic/Immunologic: no urticaria, no wheezing, no persistent infections Physical Examination Last Vital Signs Temp 97.9 F 12/21/16 04:45 Pulse 53 L 12/21/16 10:28 Resp 20 12/21/16 04:45 BP 141/61 12/21/16 04:45 Pulse Ox 97 12/21/16 09:07 General appearance: no acute distress HEENT: Positive: PERRL, Normocephaly, Mucus Membranes Moist Neck: Positive: neck supple, trachea midline Cardiac: Positive: Reg Rate and Rhythm, S1/S2 Lungs: Positive: Normal Exam, clear to auscultation, Normal Breath Sounds Neuro: Positive: Grossly Intact, Cranial Nerve 2-12 Intact Abdomen: Positive: Unremarkable, Soft, Active Bowel Sounds. Negative: Tender Skin: Positive: Clear. Negative: Rash, Wound Musculoskeletal: No Fluid Collection, No Pain, Normal Range of Motion Extremities: Present: normal, upper extr. pulses, lower extr. pulses. Absent: edema Results 12/20/16 14:32 12/20/16 14:32 - Imaging and Cardiology Echo: report reviewed EKG: report reviewed, image reviewed EKG interpretations - Telemetry EKG Rhythm: Sinus Rhythm - EKG Sinus rhythms and dysrhythmias: sinus rhythm Assessment and Plan Assessment: Ataxia / ? vertigo - head CT with NAF; brain MRI pending Sinus bradycardia HTN HLP DM Hypokalemia Obesity Plan: Echo reviewed - EF 50 - 55%. Obtain thyroid panel. Replete K+ per primary. Cont to hold all AV casper blocking agents. Currently stable cardiac status. Pending thyroid panel is WNL, pt may discharge home today from cardiology standpoint. Follow up in our [place] office on 12/26/2016 @ 10:00AM for initiation of holter study. Follow up in our [place] office with Dr. Mann on 01/10/2017 @ 8:45AM. Patient has been seen in conjunction with Dr. Magdalena Nova who agrees with the assessment and plan of care.
--- NOTE | 2016-12-21 17:04 | Magnetic Resonance Report ---
MR angiogram was performed of the intracranial circulation 3-D [id number] spoiled grass images were obtained of the intracranial circulation. The images of the carotid arteries showed no areas of occlusion or aneurysmal dilatation. The vertebral basilar system was also patent without any evidence of occlusive disease. The basilar was filled by the right vertebral with no contribution from the left vertebral, which was faint, and appeared to end in the PICA. This is a normal anatomic variation. Impression: Normal MR angiogram of the intracranial circulation.
--- NOTE | 2016-12-21 17:15 | Magnetic Resonance Report ---
MR scan of the cranium was performed without contrast. Pulse sequences included: 1. T1 weighted sagittal and axial images without contrast 2. T2 weighted axial and coronal images 3. FLAIR axial images 4. Diffusion-weighted axial images 5. Apparent diffusion coefficient images Views of the posterior fossa showed a normal craniocervical junction. Cerebellar pontine angles were normal with normal seventh-eighth nerve complexes. Brainstem showed some smudginess in the basis pontis. Cerebellum was normal. The ventricular system showed no dilatation or distortion. Images of the hemispheres showed a small, faint area of increased signal in the left emery radiata. Some mild white matter changes were present. This area did not show up on the DWI images. Sinuses, flow voids in the native of Lloyd, orbits, pituitary and basal ganglia were normal. Impression: Possible abnormal MR scan of the cranium without contrast showing a questionable area of increased signal in the left emery radiata without any abnormal signal on the diffusion weight images.
--- NOTE | 2016-12-21 17:21 | Magnetic Resonance Report ---
MR angiography is performed of the great vessels of the neck 2-D time of flight spoiled grass images were obtained of the great vessels of the neck. Images of the carotid circulation showed both carotids to be patent without any evidence of occlusive disease. A small ulcer was seen in the right external carotid just above the bifurcation. The vertebral arteries well seen and were unremarkable. Impression: Normal MR angiography of the cervical circulation except for a small ulcer of the right external carotid just above the bifurcation
[2016-12-21 17:50] VITALS: BP 122/59
--- NOTE | 2016-12-21 18:41 | Progress Note ---
Subjective Date of service: 12/21/16 Interval history: neuro -- consult dictated Pt with dizziness brisker reflexes on the right mild weakness in the right upper and lower extremities admitted for suspected stroke today she is much improved gait is normal DTR's are equal gait is normal good strenght mr scan showed a possible area of infarction in the left emery radiata Impression: reversible ischemic neurological deficit -- small thrombotic stroke Plan: OK for discharge add plavix 75 mg qd will see in 10 days in the office Objective - Vital Sign Vital Signs - 12hr 12/21/16 12/21/16 12/21/16 09:07 10:28 17:49 Temperature 97.8 F Pulse Rate 53 L Pulse Rate [ 70 Left Radial] Respiratory 18 Rate Blood Pressure 122/59 [Left Radial Artery] O2 Sat by Pulse 97 97 Oximetry - Laboratory Findings CBC and BMP: 12/20/16 14:32 12/20/16 14:32 Abnormal Lab Findings: Abnormal Labs 12/21/16 05:17 Hemoglobin A1c 6.3 H
--- NOTE | 2016-12-22 02:59 | Consultation ---
HISTORY OF PRESENT ILLNESS: A 76-year-old female was admitted at my request after I saw her in the office yesterday with problems of dizziness. The problem began the day before and she told that when she moved she felt she would fall over. When she had gotten up on the morning of 12/20/2016, she felt sluggish and her lower extremities were heavy and she was off balance. She had nausea. She had no oscillopsia. She felt lightheaded. She has a history of hypertension, diabetes, but no heart disease. PAST HISTORY: Remarkable for hysterectomy, breast surgery, hemorrhoid surgery, cataract surgery. MEDICATIONS: At home include Zocor, glipizide, Dexilant, vitamin B12, Amitiza, multivitamins, supplements, probiotics, fish oil. ALLERGIES: She has no allergies. She is right handed. SOCIAL HISTORY: She does not smoke, drink, or use drugs. 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 She has 2 years of college. She is , with 3 children. REVIEW OF SYSTEMS: Remarkable for shortness of breath, ankle swelling, and skin rash. FAMILY HISTORY: Reveals mother of an unknown cause. Father from stroke. She had 2 brothers, one of pancreatic cancer and one brother had seizures. One sister had a stroke. PHYSICAL EXAMINATION: GENERAL: Showed a well-developed, cooperative female in no acute distress. HEENT: Unremarkable. NECK: Supple. NEUROLOGIC: Cranial nerves 2-12 normal. Deep tendon reflexes were 2+. Sensory examination was intact to pin and light touch. Motor examination, when I saw her, showed mild weakness of the right upper and lower extremities with normal tone. Decreased rapid sequential finger tapping on the right. Finger-to- nose was normal. Gait was wide based. She was not able to tandem walk. Romberg was abnormal. ASSESSMENT AND PLAN: She was admitted with a diagnosis of brainstem infarct. I have seen her today and her reflexes are normal. Gait is normal. Tandem gait is normal. She has good strength and no weakness. Reflexes are equal. Thus, I suspect that she had a reversible ischemic neurologic deficit. JOB# [id number] [facility]
--- NOTE | 2016-12-23 22:05 | Vascular Lab Report ---
CAROTID DUPLEX STUDY: RIGHT PSVEDV CCA PROX:[id number] CCA DIST: 8119 ICA PROX: 7820 ICA MID: 8135 ICA DIST: 8127 ECA: 52 VERT: 34 8 LEFT PSVEDV CCA PROX: 8814 CCA DIST: 5514 ICA PROX: 7222 ICA MID: 4918 ICA DIST: 6524 ECA: 50 VERT: 59 17 REASON FOR EXAM: Stroke. COMMENTS ON THE RIGHT: Doppler frequency analysis is consistent with 16 to 49 percent diameter reduction of the internal carotid artery. Minimal amount of plaque is seen. The common carotid artery is patent. The external carotid artery is patent. The vertebral artery has antegrade flow. COMMENTS ON THE LEFT: Doppler frequency analysis is consistent with 16 to 49 percent diameter reduction of the internal carotid artery. Minimal amount of plaque is seen. The common carotid artery is patent. The external carotid artery is patent. The vertebral artery has antegrade flow. IMPRESSION: Less than 50% diameter reduction in the internal carotid arteries bilaterally. Consider repeat carotid artery duplex in 12 months.
== END 2016-12-21 19:10 | disposition home or self-care (01) | DRG 149 ==
LOC: ED 13:50 → 4A 16:18
PROVIDERS: ADMIT Internal Medicine; ATTEND Internal Medicine
DX: H81.399 Other peripheral vertigo, unspecified ear (principal); G93.40 Encephalopathy, unspecified; E11.9 Type 2 diabetes mellitus without complications; I10 Essential (primary) hypertension; K21.9 Gastro-esophageal reflux disease without esophagitis; M19.90 Unspecified osteoarthritis, unspecified site; H83.2X9 Labyrinthine dysfunction, unspecified ear; D57.3 Sickle-cell trait; R27.0 Ataxia, unspecified; E87.6 Hypokalemia; E78.5 Hyperlipidemia, unspecified; R00.1 Bradycardia, unspecified; E66.9 Obesity, unspecified; Z79.899 Other long term (current) drug therapy; Z90.49 Acquired absence of other specified parts of digestive tract; Z82.49 Family history of ischemic heart disease and other diseases of the circulatory system; Z83.3 Family history of diabetes mellitus; Z80.0 Family history of malignant neoplasm of digestive organs; Z82.3 Family history of stroke; Z82.0 Family history of epilepsy and other diseases of the nervous system; Z68.31 Body mass index [BMI] 31.0-31.9, adult; Z87.891 Personal history of nicotine dependence
CPT/HCPCS: 36415; 70450; 70544; 70547; 70551; 80048; 82962; 83036; 84439; 84443; 84484; 85025; 85610; 85670; 85730; 93005; 93010; 93306; 93880; G8978-GP; G8980-GP; G8987-GO; G8988-GO; G8989-GO

== ENCOUNTER 2017-10-23 15:07 | Outpatient (CLI) | payer OTHER, MEDICARE | END 2017-10-23 15:08 | disposition home or self-care (01) | LOC: LABHHL 15:07 | PROVIDERS: ATTEND Surgery | DX: N60.02 Solitary cyst of left breast (principal) | CPT/HCPCS: 88112 ==